=== PATIENT | male | born 1945 | race Caucasian/White ===

== ENCOUNTER 2016-07-22 13:17 | Emergency (ER) | payer MEDICARE, BC ==
[~2016-07-22] VITALS: Ht 175.3 cm; Wt 56.7 kg
[~2016-07-22 13:17] MED LIST: AZIT250T6 PO; FENT1PAT TD; HYDR8TAB27 PO; IBUP-1724 PO; IBUP-1842 PO; MULT-806 PO; OMEP40CA52 PO; TIOT18CA3 INH
[2016-07-22 13:20] VITALS: Ht 175.3 cm; Wt 56.7 kg
--- OUTSIDE RECORDS SUMMARY | 2016-07-22 13:21 | XMS REPORT | Continuity of Care Document ---
Author Author [facility] Organization [facility] Address Unknown Phone Unavailable Allergies Active Description Code Type Severity Reaction Onset Reported/Identified Relationship to Patient Clinical Status Yes No Known Medication Allergies NKMA N/A N/A 11/25/2014 Medications Problems Date Dx Coded Attending Type Code Diagnosis Diagnosed By 01/02/2015 Evangelist Dainel MD 211.3 BENIGN NEOPLASM OF COLON 01/02/2015 Evangelist Daniel MD Final 305.1 TOBACCO USE DISORDER 01/02/2015 Evangelist Daniel MD Reason V10.06 PERSONAL HISTORY OF MALIGNANT NEOPLASM OF RECTUM, RECTOSIGMOID JUNCTION, AN Procedures Code [place] [address] Colonoscopy, flexible; with biopsy, single or multiple 11/25/2014 Results Encounters ACCT No. Visit Date/Time Discharge Status Pt. Type Provider Facility Loc./Unit Complaint [id number] 11/25/2014 06:54:00 2014 11:55:00 DIS Outpatient Evangelist Daniel MD [facility] History of rectal cancer , colon polyps
--- OUTSIDE RECORDS SUMMARY | 2016-07-22 13:21 | XMS REPORT | Continuity of Care Document ---
Author Author [facility] Organization [facility] Address Unknown Phone Unavailable Support Name Relationship Address Phone NICKOLAS REY DO Caregiver [address] [place] [address] Unavailable WINDY JESUS MD Caregiver [address] [place] [address] Unavailable SHAUNNA TRISTAN II, MD Caregiver [address] [place] [address] Unavailable SHAUNNA TRISTAN II, MD Caregiver [address] [place] [address] Unavailable EVAN KHAN Next Of Kin [address] [place], [place] [id number] Insurance Providers Guarantor Shaunna Khan Address [address] [facility] [place] [address] Email [email or web address] Payer [place] Other Policy Number [id number] Subscriber's Name Shaunna Khan Relationship 18 Self Group Number [id number] Payer Medicare Policy Number [id number] Subscriber's Name Shaunna Khan Relationship 18 Self Advance Directives Directive Response Recorded Date/Time Advanced Directives Type Living Will DPOA for Healthcare 11/08/13 2:06pm Ordered Resuscitation Status Full Code 11/08/13 3:30pm Resuscitation Documents on File No 11/08/13 2:06pm DPOA for Healthcare Only Yes 03/23/16 7:16pm Living Will Yes 03/23/16 7:16pm Problems Active Problems Medical Problem Onset Date Status Acute pancreatitis Unknown Acute Anemia Unknown Acute COPD (chronic obstructive pulmonary disease) Unknown Cholelithiasis Unknown Acute Community acquired pneumonia Unknown Depression Unknown Diarrhea Unknown Acute HTN (hypertension) Unknown Acute Hyperglycemia Unknown Leukocytosis Unknown Resolved Malignant tumor of rectum Unknown Poor venous access 11/09/2013 Acute Tobacco abuse Unknown Acute Volume depletion Unknown Acute Withdrawal symptoms, drug or narcotic Unknown Acute Past Problems Medical Problem Onset Date Hypoxia Unknown Pneumonia Unknown Medications Current Home Medications Medication Dose Units Route Directions Days Qty Instructions Start Date Azithromycin 250 Mg Tablet 1 Tab Oral Daily 4 Tablet TAKE 1 TABLET DAILY UNTIL ALL TAKEN. 03/24/16 Fentanyl (Fentanyl 75 Mcg/Hr) 1 Each Patch.td72 1 Patch Transderm Every 3 Days 03/23/16 Hydromorphone Hcl 8 Mg Tablet 8 Mg Oral Every 6 Hours as needed for Pain 01/30/14 Ibuprofen 200 Mg Tablet 200 Mg Oral Every 4 Hours as needed for Pain 03/23/16 Ibuprofen/Diphenhydramine Cit (Ibuprofen Pm Caplet) 1 Each Tablet 1 Tab Oral Bedtime as needed for Insomnia 03/23/16 Multivitamins (Multivitamin) 1 Tab Tablet 1 Tab Oral Daily Omeprazole 40 Mg Capsule.dr 40 Mg Oral Daily as needed for Acid Reflux 02/14/15 Tiotropium [place] (Spiriva) 1 Cap Inhaler 1 Cap Inhalation Daily 03/23/16 Social History Social History Problem Response Recorded Date/Time Onset Date Status Reason for Hospitalization pneumonia 03/24/2016 2:49pm Not Applicable Not Applicable Chewing Tobacco Status No 11/08/2013 2:02pm Not Applicable Not Applicable Hx Substance Use No 03/23/2016 5:35pm Not Applicable Not Applicable Hx Alcohol Use No 03/23/2016 5:35pm Not Applicable Not Applicable Has the pt used tobacco in the last 12 months Yes 03/23/2016 7:18pm Not Applicable Not Applicable Query Response Start Date Stop Date Smoking Status Current every day smoker Hospital Discharge Instructions Instructions: Care Instructions: I was in the hospital because (patient own words): "PNEUMONIA" Discharge Diet: Regular Discharge Activity: No restrictions Follow Up Appointments: Follow up on tuesday or tuesday next week with Dr Tristan [phone] - call to make appointment Pending Lab / Results: No Pending Lab Expected Signs/Symptoms: Soa, cough, fatigue Notify Physician If: Worsening fever, soa During Business Hours:: Please call the physician's office at [phone] After Business Hours:: Please call [phone] and have the mulling machine operator page the physician. Pain Management/Treatment: Continue home meds Wound/Incision Care: NA Condition at time of discharge: Good Plan of Care Discharge Date 03/24/16 3:07pm Disposition 01 DISCHARGED HOME, SELF-CARE Instructions/Education Provided DI for Pneumonia -- Adult DI for Hypoxia Prescriptions See Medication Section Care Plan and Goals See Discharge Instructions Section Functional Status Query Response Date Recorded Mobility Status Ambulatory March 23, 2016 7:20pm Assistive Devices None March 23, 2016 7:20pm Activity Limitations None Shortness of breath March 23, 2016 7:20pm Feeding Ability Independent March 23, 2016 7:20pm Toileting Ability Independent March 23, 2016 7:20pm Grooming Ability Independent March 23, 2016 7:20pm Dressing Ability Independent March 23, 2016 7:20pm Driving Ability Independent March 23, 2016 7:20pm Housework Ability Independent March 23, 2016 7:20pm Meal Preparation Ability Independent March 23, 2016 7:20pm Stair Climbing Ability Independent March 23, 2016 7:20pm Ability to complete ADL's impeded by No change March 23, 2016 7:20pm Cognitive/Perceptual Impairments Impaired vision March 23, 2016 7:20pm Visual Assistive Devices Glasses With patient March 23, 2016 7:20pm Allergies, Adverse Reactions, Alerts No known allergies. Immunizations Query Response on File Recorded Date/Time Hx Influenza Vaccination Y JANUARY 2016 03/23/16 7:18pm Hx Pneumococcal Vaccination Y fall 201303/23/16 7:18pm Hx Influenza Vaccination Y JANUARY 2016 03/23/16 7:18pm Influenza Vaccine Hx fall 201503/24/16 1:12pm Vital Signs Acute Vital Signs Vital Response Date/Time Temperature (Fahrenheit) 98.1 deg F (96.8 - 99.1) 03/24/2016 7:55am Temperature (Calculated Celsius) 36.66582 degrees C (36.0 - 37.3) 03/24/2016 7:55am Pulse Rate (adult) 100 bpm (60 - 100) 03/24/2016 11:25am Respiratory Rate 16 breaths/min (10 - 20) 03/24/2016 7:55am O2 Sat by Pulse Oximetry 92 % (90 - 100) 03/24/2016 9:42am Oxygen Delivery Method Nasal Cannula 03/23/2016 10:05pm Oxygen Delivery Method Room Air 03/24/2016 9:42am Oxygen Flow Rate 0.50 L/min 03/24/2016 8:30am Blood Pressure 137/66 mm Hg 03/24/2016 7:55am Blood Pressure Source Automatic Cuff 03/24/2016 7:55am Height (Feet) 5 feet 03/24/2016 8:04am Height (Inches) 10.00 inches 03/24/2016 8:04am Weight (Kilograms) 60.400 kg 03/24/2016 7:54am Body Mass Index (BMI) 19.0 03/23/2016 7:10pm Results Laboratory Results Test Name Result Units Flags Reference Collection Date/Time Result Date/ Time Comments White Blood Count 11.2 T/MM3 H 4.5-11.0 03/24/2016 4:45am 03/24/2016 5: 28am Red Blood Count 3.33 M/MM3 L 4.50-5.90 03/24/2016 4:45am 03/24/2016 5: 28am Hemoglobin 11.5 GM/DL D L 13.5-17.5 03/24/2016 4:45am 03/24/2016 5:28am Hematocrit 33.3 % D L 41-53 03/24/2016 4:45am 03/24/2016 5:28am Mean Corpuscular Volume 100.0 UM3 80-100 03/24/2016 4:45am 03/24/2016 5 :28am Mean Corpuscular Hemoglobin 34.5 UUG H 26-34 03/24/2016 4:45am 2015 5:28am Mean Corpuscular Hemoglobin Concent 34.5 GM/DL 31-37 03/24/2016 4:45am 03/24/2016 5:28am RDW Standard Deviation 46.5 FL 36.9-50.2 03/24/2016 4:45am 03/24/2016 5 :28am Platelet Count 149 T/MM3 130-400 03/24/2016 4:45am 03/24/2016 5:28am Mean Platelet Volume 10.5 UM3 9.4-12.4 03/24/2016 4:45am 03/24/2016 5: 28am Neutrophils (%) (Auto) 83.5 % H 33-66 03/24/2016 4:45am 03/24/2016 5: 28am Lymphocytes (%) (Auto) 8.8 % L 23-45 03/24/2016 4:45am 03/24/2016 5: 28am Monocytes (%) (Auto) 6.5 % 0-9.0 03/24/2016 4:45am 03/24/2016 5:28am Eosinophils (%) (Auto) 0.2 % 0-4 03/24/2016 4:45am 03/24/2016 5:28am Basophils (%) (Auto) 0.1 % 0-2 03/24/2016 4:45am 03/24/2016 5:28am Immature Granulocyte % (Auto) 0.9 % H 0.0-0.5 03/24/2016 4:45am 2015 5:28am Absolute Neutrophils (auto) 9.4 T/MM3 H 1.8-7.7 03/24/2016 4:45am 2015 5:28am Absolute Lymphocytes (auto) 1.0 T/MM3 1-4.8 03/24/2016 4:45am 2015 5:28am Absolute Monocytes (auto) 0.7 T/MM3 0-0.8 03/24/2016 4:45am 03/24/2016 5:28am Absolute Eosinophils (auto) 0.0 T/MM3 0-0.5 03/24/2016 4:45am 2015 5:28am Absolute Basophils (auto) 0.0 T/MM3 0-0.2 03/24/2016 4:45am 03/24/2016 5:28am Absolute Immature Granulocyte (auto 0.10 T/MM3 H 0.00-0.03 03/24/2016 4: 45am 03/24/2016 5:28am Neutrophils % (Manual) 74.0 % H 33-66 03/23/2016 5:27pm 03/23/2016 6: 02pm Band Neutrophils % 11.0 % D H 0-6 03/23/2016 5:27pm 03/23/2016 6:02pm Lymphocytes % (Manual) 8.0 % L 23-45 03/23/2016 5:27pm 03/23/2016 6: 02pm Monocytes % (Manual) 6.0 % 0-9.0 03/23/2016 5:27pm 03/23/2016 6:02pm Reactive Lymphocytes % 1.0 % H 0-0 03/23/2016 5:27pm 03/23/2016 6:02pm Band Neutrophils # 1.0 T/MM3 03/23/2016 5:27pm 03/23/2016 6:02pm Absolute Neutrophils (Manual) 6.8 T/MM3 1.8-7.7 03/23/2016 5:27pm 03/23 6:02pm Lymphocytes # (Manual) 0.7 T/MM3 L 1-4.8 03/23/2016 5:27pm 03/23/2016 6: 02pm Monocytes # (Manual) 0.6 T/MM3 0-0.8 03/23/2016 5:27pm 03/23/2016 6: 02pm Reactive Lymphocytes # 0.1 T/MM3 H 0-0 03/23/2016 5:27pm 03/23/2016 6: 02pm Red Cell Morphology Comment NORMAL 03/23/2016 5:27pm 03/23/2016 6: 02pm Icterus Index < 2 0-7 03/24/2016 4:45am 03/24/2016 5:28am Chemistry Specimen Hemolysis < 15 0-25 03/24/2016 4:45am 03/24/2016 5 :28am 0-25: Specimen Exhibited No Hemolysis. Turbidity < 20 0-20 03/24/2016 4:45am 03/24/2016 5:28am Sodium Level 139 MEQ/L D 134-144 03/24/2016 4:45am 03/24/2016 5:29am Potassium Level 3.6 MEQ/L 3.6-5 03/24/2016 4:45am 03/24/2016 5:28am Chloride Level 102 MEQ/L D 98-107 03/24/2016 4:45am 03/24/2016 5:29am Carbon Dioxide Level 26 MEQ/L 22-30 03/24/2016 4:45am 03/24/2016 5: 28am Anion Gap 11 MEQ/L 5-15 03/24/2016 4:45am 03/24/2016 5:28am Blood Urea Nitrogen 13.0 MG/DL 9-03/24/2016 4:45am 03/24/2016 5: 28am Creatinine 0.7 MG/DL L 0.8-1.5 03/24/2016 4:45am 03/24/2016 5:28am BUN/Creatinine Ratio 19 RATIO 6-03/24/2016 4:45am 03/24/2016 5:28am Glomerular Filtration Rate Calc 111 03/24/2016 4:45am 03/24/2016 5: 28am Glucose Level 95 MG/DL 75-110 03/24/2016 4:45am 03/24/2016 5:28am Calculated Osmolality 268 MOSM/KG 261-280 03/24/2016 4:45am 03/24/2016 5:28am Calcium Level 8.2 MG/DL D L 8.4-10.2 03/24/2016 4:45am 03/24/2016 5:29am Phosphorus Level 3.0 MG/DL 2.5-4.5 03/24/2016 4:45am 03/24/2016 5:28am Albumin 3.2 G/DL L 3.5-5.0 03/24/2016 4:45am 03/24/2016 5:28am Troponin I < 0.012 ng/ml 0-0.12 03/23/2016 5:27pm 03/23/2016 5:55pm Troponin values with a difference of 55% increase from orginal troponin value represent a true biological DELTA value. (%increase Calc=Orginal Troponin value, divided by subsequent Troponin value, multiplied by 100) Plasma Lactate 1.7 MMOL/L 0.6-2.2 03/23/2016 5:27pm 03/23/2016 5:43pm Procalcitonin 5.07 NG/ML *H 03/23/2016 5:27pm 03/23/2016 7:10pm --- 03/23/161909 --- PROCALC previously reported as: 5.07 *H NG/ML PCT </=0.5 ng/mL - sepsis not likely; PCT >0.5 and </=2 ng/mL - sepsis possible; PCT >2 ng/mL - sepsis likely; PCT >/=10 ng/mL - systemic inflammatory response - sepsis or septic shock highly indicated. Influenza Type A Antigen NEGATIVE NEGATIVE 03/23/2016 5:23pm 2015 6:07pm Negative for Flu A protein antigen. Assay sensitivity is 90%. Influenza Type B Antigen NEGATIVE NEGATIVE 03/23/2016 5:23pm 2015 6:07pm Negative for Flu B protein antigen. Assay sensitivity is 90%. Microbiology Results Procedure Source Organism/Result Collection Date/Time Result Date/Time Result Status Blood Culture Peripheral/Iv Start CULTURE INITIATED - RESULTS PENDING 03/23 5:27pm 03/23/2016 5:30pm Preliminary Name: SHAUNNA KHAN Unit #: [id number] : 1945 Sex: M Admit Date: 03/23/16 Loc / Svc: MED Discharge Date: DIAGNOSTIC IMAGING REPORT Report #: [id number] [facility] ARIEL Moses INDICATION: ITS.REASON: cough, fever, dyspnea PROCEDURE: CHEST 2-VIEWS UPRIGHT (PA \\T\\ LAT) Encounter: Initial COMPARISON: None FINDINGS: The lungs are prominently hyperaerated and there is airspace consolidation in the left lower lobe posterior base and there is accentuation of bronchovascular markings in the right infrahilar base as well. Trace pleural effusion on the left is likely. There is no cardiomegaly or pulmonary vascular engorgement. Trachea lies midline. Bony structures appear intact and monitor leads overlie the chest.. IMPRESSION: 1. Chronic obstructive pulmonary disease. 2. Bibasal infiltrates with interstitial infiltrate in the right infrahilar base and airspace consolidation/lobar pneumonia in the left base. RECOMMENDATION: Close radiographic follow-up. . Procedures No known history of procedures. Encounters Encounter Location Arrival/Admit Date Discharge/Depart Date Attending Provider Discharged Inpatient [facility] 03/23/16 8:28pm 03/24/16 3:07pm SHAUNNA TRISTAN II, MD
--- OUTSIDE RECORDS SUMMARY | 2016-07-22 13:21 | XMS REPORT | Continuity of Care Document ---
Author Author [facility] Organization [facility] Address Unknown Phone Unavailable Support Name Relationship Address Phone SHAUNNA TRISTAN II, MD Caregiver [address] [place], [place] [phone] INFECTION, CONTROL Caregiver [address] [place] [address] [phone] EVAN KHAN Next Of Kin [address] [place] [address] Insurance Providers Payer Name Policy Number Subscriber Name Relationship Medicare [id number] Shaunna Khan 18 Self [employer] Other [id number] Shaunna Khan 18 Self Advance Directives Directive Response Recorded Date/Time Advanced Directives Type Living Will DPOA for Healthcare 11/08/13 2:06pm Ordered Resuscitation Status Full Code 11/08/13 3:30pm Resuscitation Documents on File No 11/08/13 2:06pm Problems Medical Problems Problem Onset Date Status Poor venous access 11/09/2013 Active Medications Medication Dose Route Sig Days/Qty Instructions Order Date Discontinued Date Status Multivitamins 1 Tab PO DAILY 11/09/13 Active Hydromorphone HCl 8 Mg PO NEEDED 56 Qty 01/30/14 Active Colestipol HCl 5 Gm PO TWICE A DAY 250 Qty 01/30/14 Active Social History Social History Problem Response Recorded Date/Time Smoking Status Current every day smoker 11/08/2013 3:34pm Chewing Tobacco Status No 11/08/2013 2:02pm Hx Substance Use No 01/30/2014 11:26am Hx Alcohol Use No 01/30/2014 11:26am Has the pt used tobacco in the last 12 months Yes 01/30/2014 11:26am Hospital Discharge Instructions No hospital discharge instructions. Plan of Care No plan of care. Functional Status Query Response Date Recorded Physical Hygiene Self November 09, 2013 11:12am Disabilities None November 09, 2013 11:12am Ambulation Self November 09, 2013 11:12am Mental Status Alert Oriented November 09, 2013 11:12am Disabilities None November 09, 2013 11:12am Physical Hygiene Self November 09, 2013 11:12am Ambulation Self November 09, 2013 11:12am Allergies, Adverse Reactions, Alerts Allergen Type Severity Reaction Status Last Updated No Known Allergies Active 11/08/13 Immunizations Name Given Type Hx Influenza Vaccination Y FALL 2011 Historical Hx Pneumococcal Vaccination fall Historical Hx Influenza Vaccination fall Historical Vital Signs Acute Vital Signs Vital Response Date/Time Temperature (Fahrenheit) 97.8 deg F (96.8 - 99.1) Temperature (Calculated Celsius) 36.53239 degrees C (36.0 - 37.3) Temperature Source Temporal Pulse Rate (adult) 68 bpm (60 - 100) Respiratory Rate 16 breaths/min (10 - 20) O2 Sat by Pulse Oximetry 95 % (90 - 100) Oxygen Delivery Method Room Air Blood Pressure 169/83 mm Hg Blood Pressure Source Automatic Cuff Results Test Source Date Result Interp. Ref. Range Comments Basophils # (Auto) November 09, 2013 9:20am 0.0 T/MM3 N 0-0.2 COMMENT SCU WILL CALL Basophils (%) (Auto) November 09, 2013 9:20am 0.4 % N 0-2 COMMENT SCU WILL CALL Eosinophils # (Auto) November 09, 2013 9:20am 0.2 T/MM3 N 0-0.5 COMMENT SCU WILL CALL Eosinophils (%) (Auto) November 09, 2013 9:20am 1.8 % N 0-4 COMMENT SCU WILL CALL Hematocrit November 09, 2013 9:20am 42.1 % N 41-53 COMMENT SCU WILL CALL Hemoglobin November 09, 2013 9:20am 14.1 GM/DL N 13.5-17.5 COMMENT SCU WILL CALL Lymphocytes # (Auto) November 09, 2013 9:20am 1.4 T/MM3 N 1-4.8 COMMENT SCU WILL CALL Lymphocytes (%) (Auto) November 09, 2013 9:20am 15.2 % L 23-45 COMMENT SCU WILL CALL Mean Corpuscular Hemoglobin November 09, 2013 9:20am 31.4 UUG N 26-34 COMMENT SCU WILL CALL Mean Corpuscular Hemoglobin Concent November 09, 2013 9:20am 33.5 GM/DL N 31 -37 COMMENT SCU WILL CALL Mean Corpuscular Volume November 09, 2013 9:20am 93.8 UM3 N 80-100 COMMENT SCU WILL CALL Mean Platelet Volume November 09, 2013 9:20am 9.6 UM3 N 9.4-12.4 COMMENT SCU WILL CALL Monocytes # (Auto) November 09, 2013 9:20am 0.7 T/MM3 N 0-0.8 COMMENT SCU WILL CALL Monocytes (%) (Auto) November 09, 2013 9:20am 7.7 % N 0-9.0 COMMENT SCU WILL CALL Neutrophils # (Auto) November 09, 2013 9:20am 7.1 T/MM3 N 1.8-7.7 COMMENT SCU WILL CALL Neutrophils (%) (Auto) November 09, 2013 9:20am 74.7 % H 33-66 COMMENT SCU WILL CALL Platelet Count November 09, 2013 9:20am 243 T/MM3 N 130-400 COMMENT SCU WILL CALL RDW Standard Deviation November 09, 2013 9:20am 48.3 FL N 36.9-50.2 COMMENT SCU WILL CALL Red Blood Count November 09, 2013 9:20am 4.49 M/MM3 L 4.50-5.90 COMMENT SCU WILL CALL White Blood Count November 09, 2013 9:20am 9.5 T/MM3 N 4.5-11.0 COMMENT SCU WILL CALL Immature Granulocyte # (Auto) November 09, 2013 9:20am 0.02 T/MM3 N 0.00- 0.03 COMMENT SCU WILL CALL Immature Granulocyte % (Auto) November 09, 2013 9:20am 0.2 % N 0.0-0.5 COMMENT SCU WILL CALL Procedures Procedure Status Date Provider(s) REMOVAL TUNNELED CV CATH completed 11/09/13 RAHEEL MAYNARD MD Colonoscopy completed 01/31/14 RYLEE POLLARD MD
--- OUTSIDE RECORDS SUMMARY | 2016-07-22 13:21 | XMS REPORT | Continuity of Care Document ---
Author Author [facility] Organization [facility] Address Unknown Phone Unavailable Support Name Relationship Address Phone RAHEEL MAYNARD MD Caregiver [facility] [address] [place] [address] [address] [place] [phone] SHAUNNA TRISTAN II, MD Caregiver [address] [place] [phone] EVAN KHAN Next Of Kin [address] [place] [address] Insurance Providers Payer Name Policy Number Subscriber Name Relationship Medicare [id number] Shaunna Khan 18 Self [employer] Other [id number] Shaunna Khan 18 Self Advance Directives Directive Response Recorded Date/Time Advanced Directives Type Living Will DPOA for Healthcare 11/08/13 2:06pm Ordered Resuscitation Status Full Code 11/08/13 3:30pm Resuscitation Documents on File No 11/08/13 2:06pm Problems Medical Problems Problem Onset Date Status Poor venous access 11/09/2013 Active Medications Medication Dose Route Sig Days/Qty Instructions Order Date Discontinued Date Status Oxycodone Hcl 5 Mg PO NEEDED 11/08/13 Active Multivitamins 1 Tab PO DAILY 11/09/13 Active Social History Social History Problem Response Recorded Date/Time Smoking Status Current every day smoker 11/08/2013 3:34pm Chewing Tobacco Status No 11/08/2013 2:02pm Hx Substance Use No 11/08/2013 2:02pm Hx Alcohol Use No 11/08/2013 2:02pm Has the pt used tobacco in the last 12 months Yes 11/08/2013 3:34pm Hospital Discharge Instructions No hospital discharge instructions. Plan of Care No plan of care. Functional Status Query Response Date Recorded Physical Hygiene Self November 09, 2013 11:12am Disabilities None November 09, 2013 11:12am Devices Used None November 09, 2013 11:12am Dressing Self November 09, 2013 11:12am Ambulation Self November 09, 2013 11:12am Diet Self November 09, 2013 11:12am Mental Status Alert Oriented November 09, 2013 11:12am Disabilities None November 09, 2013 11:12am Devices Used None November 09, 2013 11:12am Physical Hygiene Self November 09, 2013 11:12am Dressing Self November 09, 2013 11:12am Ambulation Self November 09, 2013 11:12am Diet Self November 09, 2013 11:12am Allergies, Adverse Reactions, Alerts Allergen Type Severity Reaction Status Last Updated No Known Allergies Active 11/08/13 Immunizations Name Given Type Hx Influenza Vaccination Y FALL 2011 Historical Hx Pneumococcal Vaccination fall Historical Hx Influenza Vaccination fall Historical Vital Signs Acute Vital Signs Vital Response Date/Time Temperature (Fahrenheit) 98.4 deg F (96.8 - 99.1) Temperature (Calculated Celsius) 36.27229 degrees C (36.0 - 37.3) Temperature Source Temporal Pulse Rate (adult) 64 bpm (60 - 100) Respiratory Rate 16 breaths/min (10 - 20) O2 Sat by Pulse Oximetry 92 % (90 - 100) Blood Pressure 150/66 mm Hg Blood Pressure Source Automatic Cuff Height 5 ft 10 in Weight 139 lb Body Mass Index 20.0 kg/m^2 Results Test Source Date Result Interp. Ref. Range Comments Immature Granulocyte # (Auto) November 09, 2013 9:20am 0.02 T/MM3 N 0.00- 0.03 COMMENT SCU WILL CALL Basophils # (Auto) November 09, 2013 9:20am 0.0 T/MM3 N 0-0.2 COMMENT SCU WILL CALL Eosinophils # (Auto) November 09, 2013 9:20am 0.2 T/MM3 N 0-0.5 COMMENT SCU WILL CALL Monocytes # (Auto) November 09, 2013 9:20am 0.7 T/MM3 N 0-0.8 COMMENT SCU WILL CALL Lymphocytes # (Auto) November 09, 2013 9:20am 1.4 T/MM3 N 1-4.8 COMMENT SCU WILL CALL Neutrophils # (Auto) November 09, 2013 9:20am 7.1 T/MM3 N 1.8-7.7 COMMENT SCU WILL CALL Immature Granulocyte % (Auto) November 09, 2013 9:20am 0.2 % N 0.0-0.5 COMMENT SCU WILL CALL Basophils (%) (Auto) November 09, 2013 9:20am 0.4 % N 0-2 COMMENT SCU WILL CALL Eosinophils (%) (Auto) November 09, 2013 9:20am 1.8 % N 0-4 COMMENT SCU WILL CALL Monocytes (%) (Auto) November 09, 2013 9:20am 7.7 % N 0-9.0 COMMENT SCU WILL CALL Lymphocytes (%) (Auto) November 09, 2013 9:20am 15.2 % L 23-45 COMMENT SCU WILL CALL Neutrophils (%) (Auto) November 09, 2013 9:20am 74.7 % H 33-66 COMMENT SCU WILL CALL Mean Platelet Volume November 09, 2013 9:20am 9.6 UM3 N 9.4-12.4 COMMENT SCU WILL CALL Platelet Count November 09, 2013 9:20am 243 T/MM3 N 130-400 COMMENT SCU WILL CALL RDW Standard Deviation November 09, 2013 9:20am 48.3 FL N 36.9-50.2 COMMENT SCU WILL CALL Mean Corpuscular Hemoglobin Concent November 09, 2013 9:20am 33.5 GM/DL N 31 -37 COMMENT SCU WILL CALL Mean Corpuscular Hemoglobin November 09, 2013 9:20am 31.4 UUG N 26-34 COMMENT SCU WILL CALL Mean Corpuscular Volume November 09, 2013 9:20am 93.8 UM3 N 80-100 COMMENT SCU WILL CALL Hematocrit November 09, 2013 9:20am 42.1 % N 41-53 COMMENT SCU WILL CALL Hemoglobin November 09, 2013 9:20am 14.1 GM/DL N 13.5-17.5 COMMENT SCU WILL CALL Red Blood Count November 09, 2013 9:20am 4.49 M/MM3 L 4.50-5.90 COMMENT SCU WILL CALL White Blood Count November 09, 2013 9:20am 9.5 T/MM3 N 4.5-11.0 COMMENT SCU WILL CALL Procedures Procedure Status Date Provider(s) Removal of tunneled central venous catheter with port completed 11/09/13 RAHEEL MAYNARD MD
--- NOTE | 2016-07-22 13:25 | NUR ---
PROVIDER Verónica MARIANO PROPERTY MAN IN TO SEE PATIENT.
[2016-07-22] MEDS ORDERED: NORMAL SALINE 1,000 ML IV ONE (13:30)
[2016-07-22] MEDS ORDERED: HYDROMORPHONE 2mg/ml INJECTION IV ONE (13:30)
--- NOTE | 2016-07-22 13:33 | ERPDOC ---
Departure Disposition Decision Date: Jul 22, 2016 Disposition Decision Time: 15:01 (MONTSERRATЕЛЕНАJoe Diaz APRN) Disposition: 01 DISCHARGED HOME, SELF-CARE Impression Impression (ЕЛЕНА MARIANO Joe PENG) Impression: Primary Impression: Diarrhea Diarrhea type: unspecified type Qualified Codes: R19.7 - Diarrhea, unspecified Additional Impressions: Volume depletion Withdrawal symptoms, drug or narcotic Substance type: opioid Qualified Codes: F11.23 - Opioid dependence with withdrawal Severity: Moderate (MAYRAJAKEЕЛЕНАJoe Diaz APRN) Condition: Stable Seen By: Mid-level only (MAYRAЕЛЕНА JOSEPH APRN) Referrals: SHAUNNA TRISTAN II, MD (Family) Patient Instructions: Acute Diarrhea (ED) Problems/Meds/Labs Reviewed?: Yes Medications reviewed and manag: Yes (MAYRAJAKEЕЛЕНАJoe Diaz APRN) Additional Instructions: Follow up next week with Dr Tristan for reevaluation of the diarrhea and also for the pain medication refill. I do want you to make sure that you are drinking plenty of fluids at home. If you should have any fever, abdominal pain , or any new issues/concerns then please return to ER for reevaluation. Follow up care ordered?: Yes Mental Status: Alert (MAYRAJAKEЕЛЕНА Joe PENG) HPI - Abdominal Pain General Chief Complaint: Nausea,Vomiting,Diarrhea Stated Complaint: DEHYDRATED,DIARRHEA Time Seen by Provider: 13:22 Source: patient, family () History/Exam Limitations: no limitations (MAYRAJAKEЕЛЕНАJoe Diaz APRN) Time Seen by Provider: 13:22 (BENJIE MCELROY DO) HPI - Abdominal Pain Initial Comments He presents to ER for evaluation of diarrhea and possible dehydration. He has a history of rectal cancer and has chronic pain due to radiation zendejas. He usually wears a Fentanyl patch and takes Po morphine. He ran out of both of those on Tuesday, 4 days ago. He did contact his PCP office and his PCP is out of town until next week so he is unable to fill the Rx til then. He denies any fever or abdominal pain. Denies any nausea/vomiting. Has been having frequent watery stools at home and has not been eating much. Occurred At: home Onset: Gradual Duration: other (Over the last 4 days) Quality: other (No pain) Radiation: no radiation Activities at Onset: none Associated Symptoms: fatigue, fever/chills (chills, no fever), weakness, DENIES : back pain, chest pain, diaphoresis, headache, heartburn, nausea/vomiting, rash , shortness of breath, swelling/mass in abdomen, syncope Hx of Similar Symptoms: No (NOLD,ЕЛЕНА N SCRUB TECH) Allergies: Coded Allergies: No Known Allergies (Unverified , 03/23/16) Past History Patient Surgical History Colonoscopy - 2014 Partial bowel resection with colostomy then reanastamosis - 2012 Partial removal of rectum 06/03 malignancy - 2012 (NOLD,ЕЛЕНА N SCRUB TECH) Past Medical History Metabolic: cancer, hypertension GI: GERD (NOLD,ЕЛЕНА N SCRUB TECH) Surgical History General: colonoscopy, other (NOLD,ЕЛЕНА N SCRUB TECH) Family History Family PMH: FOUND: other (NOLD,ЕЛЕНА N SCRUB TECH) Vaccines Hx Influenza Vaccination: Yes (JANUARY 2016) Hx Pneumococcal Vaccination: Yes (FALL 2013) (NOLD,ЕЛЕНА N SCRUB TECH) Social History # of Packs/Tins per Day: 1 Substance Use Type: does not use Alcohol Intake: none Marital Status: Sexuality: female partner Household Members: spouse Current Occupational Status: retired (NOLD,ЕЛЕНА N SCRUB TECH) Review of Systems Constitutional Constitutional: appetite decrease, chills, fatigue, weakness, DENIES: dizziness , fever (NOLD,ЕЛЕНА N SCRUB TECH) ENMT Ears: DENIES: drainage, pain Sinuses: DENIES: congestion, rhinorrhea Mouth/Throat: DENIES: painful swallowing, scratchy throat, sore throat (NOLD, ЕЛЕНА N SCRUB TECH) Cardiovascular Cardiac: DENIES: chest pain, orthopnea Rhythm/Rate: DENIES: irregular beat, palpitations (NOLD,ЕЛЕНА N SCRUB TECH) Pulmonary Respiratory: DENIES: cough, dyspnea, sputum, tachypnea (NOLD,ЕЛЕНА N SCRUB TECH) GI Upper Abdomen: DENIES: nausea, pain, vomiting Lower Abdomen: diarrhea, DENIES: blood in stool, constipation, pain (NOLD, ЕЛЕНА N SCRUB TECH) Integumentary Skin: DENIES: rash (NOLD,ЕЛЕНА N SCRUB TECH) Neurological General: DENIES: headache, numbness, tingling, weakness (NOLD,ЕЛЕНА N SCRUB TECH) Physical Exam General General Nourishment: well nourished, well developed, appears stated age, no acute distress, adult General Body Habitus: well groomed (ЕЛЕНА MARIANO APRN) Vitals and Pain First Documented Vital Signs Date Time Temp Pulse Resp B/P Pulse Ox O2 Delivery O2 Flow Rate FiO2 07/22/16 13:20 98.1 85 20 167/81 97 07/22/16 15:25 Room Air (EBNJIE MCELROY DO) Vitals and Pain Weight: Kilograms: Height (feet): 5 Height (inches): 10.00 Triage Pain Scale: (ЕЛЕНА MARIANO APRN) RN VS reviewed by Provider: Yes (ЕЛЕНА MARIANO APRN) Normal Exams: Neck: Full range of motion, without adenopathy, JVD, bruits or thyromegaly Chest/Resp: Clear all murillo, with good airflow, and symmetry bilaterally CV: Regular rate and rhythm, without murmur or gallop, Pulses 2+ all extremities, capillary refill, <2 seconds all ext., no pedal edema noted Abdomen: Bowel sounds positive, soft, non-tender, non-distended, no hepatosplenomegaly, masses or bruits noted Lymphatic: No lymphadenopathy, or lymphedema noted Integumentary: No rashes, hives, or bruising noted Neurologic: Patient is alert, and oriented Psychiatric: Patient exhibits, appropriate attention, emotion and affect (ЕЛЕНА MARIANO APRN) Differential Diagnoses Considering: C-Difficule Colitis, Dehydration, Food Poisoning, Gastroenteritis , Hyponatremia, Hypokalemia, Hypoglycemia (ЕЛЕНА MARIANO APRN) Progress Results/Orders Orders Procedure Category Date Status Time Cbc W/Auto LAB 07/22/16 Complete Diff-Reflex Manual Cmp - Comprehensive LAB 07/22/16 Complete Metabolic Iv Lock (Ed Only) EDM 07/22/16 Transmitted 13:28 Normal Saline (Normal PHA 07/22/16 Complete Saline Iv) 13:30 Hydromorphone PHA 07/22/16 Complete (Dilaudid) 13:30 Fentanyl 75 Mcg Patch PHA 07/22/16 Complete (Duragesic 75 Mcg) 15:00 (BENJIE MCELROY DO) Lab Results Laboratory Tests Test 07/22/16 13:43 White Blood Count 18.3T/MM3 Red Blood Count 4.41M/MM3 Hemoglobin 16.4GM/DL Hematocrit 44.8% Mean Corpuscular Volume 101.6UM3 Mean Corpuscular Hemoglobin 37.2UUG Mean Corpuscular Hemoglobin Concent 36.6GM/DL RDW Standard Deviation 50.2FL Platelet Count 293T/MM3 Mean Platelet Volume 9.7UM3 Immature Granulocyte % (Auto) 0.2% Neutrophils (%) (Auto) 82.4% Lymphocytes (%) (Auto) 9.4% Monocytes (%) (Auto) 7.8% Eosinophils (%) (Auto) 0.1% Basophils (%) (Auto) 0.1% Absolute Immature Granulocyte (auto 0.04T/MM3 Absolute Neutrophils (auto) 15.1T/MM3 Absolute Lymphocytes (auto) 1.7T/MM3 Absolute Monocytes (auto) 1.4T/MM3 Absolute Eosinophils (auto) 0.0T/MM3 Absolute Basophils (auto) 0.0T/MM3 Turbidity < 20 Sodium Level 139MEQ/L Potassium Level 4.1MEQ/L Chloride Level 103MEQ/L Carbon Dioxide Level 25MEQ/L Anion Gap 11MEQ/L Blood Urea Nitrogen 17.0MG/DL Creatinine 0.9MG/DL Glomerular Filtration Rate Calc 83 BUN/Creatinine Ratio 19RATIO Glucose Level 122MG/DL Calculated Osmolality 271MOSM/KG Calcium Level 10.2MG/DL Total Bilirubin 1.30MG/DL Icterus Index < 2 Aspartate Amino Transf (AST/SGOT) 42U/L Alanine Aminotransferase (ALT/SGPT) 39U/L Alkaline Phosphatase 68U/L Total Protein 7.7G/DL Albumin 4.7G/DL Globulin 3.0G/DL Albumin/Globulin Ratio 1.6RATIO Chemistry Specimen Hemolysis 29 (BENJIE MCELROY DO) Medications Current ED Medications Sodium Chloride (Normal Saline IV) 1,000 ml @ 1,000 mls/hr Q1H ONCE IV Last administered on 07/22/16 13:46; Start 07/22/16 at 13:30; Stop 07/22/16 at 14:29 ; Status DC Hydromorphone HCl (Dilaudid) 1 mg O ONCE IV Last administered on 07/22/16 13: 45; Start 07/22/16 at 13:30; Stop 07/22/16 at 13:31; Status DC Fentanyl (Duragesic 75 Mcg) 1 patch O ONCE TD Last administered on 07/22/16t 15:19; Start 07/22/16 at 15:00; Stop 07/22/16 at 15:01; Status DC (BENJIE MCELROY DO) Progress Progress WBC elevated at 18.3 with 82.4 neutrophils. CMP is normal. IVF infused and he does feel better he states. I did talk with him about the elevated WBC and getting a stool sample and urine and further workup. He does want to just go home at this time, states that he will follow up with his PCP. He does feel that the diarrhea is due to him not having his fentanyl and Hydromorphone tablets. Will go ahead and let him go home. I will go ahead and order a fentanyl patch for him today but will have him follow up with his PCP for Rx and reevaluation. (ЕЛЕНА MARIANO APRN) ЕЛЕНА MARIANO APRN Jul 22, 2016 13:33 BENJIE MCELROY DO Jul 23, 2016 07:20
[2016-07-22 13:49] LABS: BASOPHILS % (AUTO) 0.1 % (0-2); EOSINOPHILS % (AUTO) 0.1 % (0-4); HCT - HEMATOCRIT 44.8 % (41-53); HGB - HEMOGLOBIN 16.4 GM/DL (13.5-17.5); IMMATURE GRANULOCYTE # (AUTO) 0.04 T/MM3 (0.00-0.03); IMMATURE GRANULOCYTE % (AUTO) 0.2 % (0.0-0.5); LYMPHOCYTES # (AUTO) 1.7 T/MM3 (1-4.8); LYMPHOCYTES % (AUTO) 9.4 % (23-45); MEAN CORPUSCULAR HGB 37.2 UUG (26-34); MEAN CORPUSCULAR HGB CONC(MCHC 36.6 GM/DL (31-37); MEAN CORPUSCULAR VOLUME 101.6 UM3 (80-100); MEAN PLATELET VOLUME 9.7 UM3 (9.4-12.4); MONOCYTES # (AUTO) 1.4 T/MM3 (0-0.8); MONOCYTES % (AUTO) 7.8 % (0-9.0); NEUTROPHILS #(AUTO)-ABSOLUTE 15.1 T/MM3 (1.8-7.7); NEUTROPHILS % (AUTO) 82.4 % (33-66); RED BLOOD COUNT 4.41 M/MM3 (4.50-5.90); WBC - WHITE BLOOD COUNT 18.3 T/MM3 (4.5-11.0)
--- OUTSIDE RECORDS SUMMARY | 2016-07-22 13:50 | XMS REPORT | Continuity of Care Document ---
Author Author [facility] Organization [facility] Address Unknown Phone Unavailable Support Name Relationship Address Phone SHAUNNA TRISTAN II, MD Caregiver [address] [place], [place] [phone] INFECTION, CONTROL Caregiver [address] [place] [address] [phone] EVAN KHAN Next Of Kin [address] [place] [address] Insurance Providers Payer Name Policy Number Subscriber Name Relationship Medicare [id number] Shaunna Khan 17 Self [employer] Other [id number] Shaunna Khan 17 Self Advance Directives Directive [...] F (96.8 - 99.1) Temperature (Calculated Celsius) 36.34902 degrees C (36.0 - 37.3) Temperature Source [...]
--- OUTSIDE RECORDS SUMMARY | 2016-07-22 13:50 | XMS REPORT | Continuity of Care Document ---
Author Author [facility] Organization [facility] Address Unknown Phone Unavailable Allergies Active Description Code Type Severity Reaction Onset Reported/Identified Relationship to Patient Clinical Status Yes No Known Medication Allergies NKMA N/A N/A 11/25/2014 Medications Problems Date Dx Coded Attending Type Code Diagnosis Diagnosed By 01/02/2015 Evangelist Daniel MD 211.3 BENIGN NEOPLASM OF COLON 01/02/2015 Evangelist Daniel MD Final 305.1 TOBACCO USE DISORDER 01/02/2015 Evangelist Daniel MD Reason V10.06 PERSONAL HISTORY OF MALIGNANT NEOPLASM OF RECTUM, RECTOSIGMOID JUNCTION, AN Procedures Code [place] [address] Colonoscopy, flexible; with biopsy, single or multiple 11/25/2014 Results Encounters ACCT No. Visit Date/Time Discharge Status Pt. Type Provider Facility Loc./Unit Complaint [id number] 11/25/2014 06:54:00 2014 11:55:00 DIS Outpatient Evangelist Daniel MD [facility] History of rectal cancer , colon polyps
--- OUTSIDE RECORDS SUMMARY | 2016-07-22 13:50 | XMS REPORT | Continuity of Care Document ---
Author Author [facility] Organization [facility] Address Unknown Phone Unavailable Support Name Relationship Address Phone RAHEEL MAYNARD MD Caregiver [facility] [address] [place] [address] [address] [place] [phone] SHAUNNA TRISTAN II, MD Caregiver [address] [place] [phone] EVAN KHAN Next Of Kin [address] [place] [address] Insurance Providers Payer Name Policy Number Subscriber Name Relationship Medicare [id number] Shaunna Khan 17 Self [employer] Other [id number] Shaunna Khan 17 Self Advance Directives Directive [...] F (96.8 - 99.1) Temperature (Calculated Celsius) 36.75504 degrees C (36.0 - 37.3) Temperature Source [...]
[2016-07-22 13:59] LABS: ALBUMIN 4.7 G/DL (3.5-5.0); ALBUMIN/GLOBULIN RATIO 1.6 RATIO (1.1-2.2); ALKALINE PHOSPHATASE 68 U/L (38-126); ALT (SGPT) 39 U/L (21-72); ANION GAP 11 MEQ/L (5-15); AST (SGOT) 42 U/L (17-59); BUN/CREATININE RATIO 19 RATIO (6-26); CALCIUM 10.2 MG/DL (8.4-10.2); CHLORIDE 103 MEQ/L (98-107); CO2 - CARBON DIOXIDE 25 MEQ/L (22-30); CREATININE 0.9 MG/DL (0.8-1.5); GLOMERULAR FILTRATION RATE 83; GLUCOSE 122 MG/DL (75-110); POTASSIUM 4.1 MEQ/L (3.6-5); SODIUM 139 MEQ/L (134-144); TOTAL PROTEIN 7.7 G/DL (6.3-8.2)
[2016-07-22] MEDS ORDERED: FENTANYL 75MCG/HR PATCH TD ONE (15:00)
[2016-07-22 15:25] VITALS: BP 150/71; PULSE 80; RESP 18; TEMP 98; O2SAT 98
== END 2016-07-22 15:25 | disposition home or self-care (01) ==
LOC: ED 13:17
DX: R19.7 Diarrhea, unspecified (principal); E86.9 Volume depletion, unspecified; F11.23 Opioid dependence with withdrawal; T40.2X5A Adverse effect of other opioids, initial encounter; Y92.009 Unspecified place in unspecified non-institutional (private) residence as the place of occurrence of the external cause
CPT/HCPCS: 80053; 85025; 96361; 96374; 99284; A9270; J1170; J7030